=== PATIENT | male | born 1970 | race Caucasian/White ===

== ENCOUNTER 2024-10-20 10:30 | Emergency (ER) | payer MEDICAID ==
[~2024-10-20] VITALS: Ht 185.4 cm; Wt 128.2 kg
[2024-10-20 10:51] VITALS: BP 148/90; PULSE 78; RESP 17; O2SAT 97
--- NOTE | 2024-10-20 11:50 | Physician Documentation ---
History of Present Illness ~ Chief Complaint: Eye Pain Stated Complaint: EYE PAIN Time Seen by MD: 11:21 Primary Medical Doctor: mejia arana at [facility] Source: patient Mode of Arrival: POV Exam Limitations: no limitations HPI 54-year-old male with chief complaint left lower eyelid pain which started a week ago when he was weed whacking. He states that is something hit his lower eyelid and he has had pain and swelling since. The pain and swelling have not necessarily got any worse but he states today was the 1st day he had a chance to come in due to his work schedule. He also reports that the area is very itchy. He states it is as itchy as it is painful. He has had extensive surgery on his right eye and he states that his left eye is his good eye so he is that much more concerned about this. He denies any pain with his eyeball, photophobia, vision changes. Medication Reconciliation Allergies: Coded Allergies: No Known Allergies (Unverified , 10/20/24) Past Medical History Past Medical History: No Pertinent History Past Surgical History: noncontributory Lives In: Home Occupation: employed Review of Systems All Other Systems at this time: Reviewed and Negative Physical Exam Vital Signs: Temperature: 97.9, Source: Temporal, Heart Rate: 78, Respiratory Rate: 17, BP: 148/90, Pulse Oximetry: 97, Weight: 128.200 Oxygen Flow Rate: 0 Physical Exam General Appearance: Alert, WD/WN. NAD. HEENT: NCAT, PERRL, EOMI without pain. Left lower eyelid erythematous with a well defined palpable subcutaneous nodule you can appreciate the outlines of the nodule when you look at the palpebra conjunctiva but from the exterior side of the eyelid you can not appreciate this as the area is diffusely swollen. No swelling or erythema of upper eyelid. Bulbar conjunctiva clear, slight increased tearing at the corners. Neck: Supple, trachea midline. Lungs: Breathing unlabored Extremities: Normal inspection. No edema. Skin: Warm/dry, normal color Neurological: Alert and oriented x4, normal gait. Psychiatric: Affect congruent with mood. Progress Results/Orders Results/Orders Vital Signs 10/20/24 10:51 Temp 97.9 Pulse 78 Resp 17 B/P (MAP) 148/90 Pulse Ox 97 O2 Flow Rate 0 Medical Decision Making Eye Diff. Dx: Considerations: Include: [place], Conjuctivits-allergic, Conjuctivitis-bacterial, Conjuctivits-chlamydial, Conjuctivitis-viral, Corneal abrasion, Corneal laceration, Corneal ulceration, Foreign body-conjuctiva, Foreign body-corneal, Foreign body-intraocular, Foreign body-lid, Glaucoma, Globe rupture, Hordeolum, Iritis, Orbital cellulitis, Periobital cellulitis, Ret inal artery occulsion, Retinal vein occlusion, Rust ring, Subconjunctival hem, Ultraviolet keratitis, Uveitis, Vitreous hemorrhage, Other Additional Comment I am not concerned for a foreign body in the eye as patient does not have any photophobia he is able to keep his eye open and there was no vision changes. I am also not concerned about post orbital cellulitis as there is no pain with extraocular movements; however, due to the amount of swelling and the fact this has been going on for a week now, I am going to treat him for cellulitis rather than just a hordeolum Departure Time of Disposition: 11:48 Disposition: HOME / SELF CARE / HOMELESS Impression: Primary Impression: Cellulitis Qualified Codes: L03.211 - Cellulitis of face Condition: Fair Discharge Instructions: Cellulitis, Adult, Crdn-fy-[id number] Additional Instructions: ORAL AND TOPICAL ANTIBIOTIC SENT TO PHARMACY [facility] SENT FOR THE ITCHING IF INCREASING PAIN, SWELLING, FEVER, PAIN WITH EYE MOVEMENTS OR VISION CHANGES RETURN TO ER IMMEDIATELY Referrals: NO PRIMARY CARE PROVIDER (PCP) Prescriptions Diphenhydramine Hcl (Benadryl) 25 Mg Capsule 50 MG PO TID for 7 Days, #1 BOTTLE PATIENT GOING TO USE HIS HSA CARD Prov: IVORY RODRIGUEZ 10/20/24 Erythromycin Base Opth. Ointment* (Erythromycin Opth. Ointment*) 1 Gm Tube 1 APPLIC EACHEYE Q6HWA for 7 Days, #1 EACH Prov: IVORY RODRIGUEZ 10/20/24 Cephalexin*Monohydrate* (Keflex*) 500 Mg Capsule 1 CAP PO Q6H for 10 Days, #40 CAP Prov: IVORY RODRIGUEZ 10/20/24 Education Educated: Patient Educated regarding: diagnosis, treatment, need for follow up Signature Scribe Signature: X Attestation: X IVORY RODRIGUEZ Oct 20, 2024 11:50
[2024-10-20] MEDS ORDERED: ERYT1OIN6 EACHEYE (11:51)
[2024-10-20] MEDS ORDERED: DIPH-423 PO (11:51)
[2024-10-20] MEDS ORDERED: CEPH-585 PO (11:51)
[2024-10-20 11:58] VITALS: TEMP 97.9
== END 2024-10-20 12:00 | disposition home or self-care (01) ==
LOC: ER 10:31
DX: H00.035 Abscess of left lower eyelid (principal)
CPT/HCPCS: 99283